=== PATIENT | male | born 1985 | race Asian ===

== ENCOUNTER 2022-05-31 16:05 | Emergency (ER) | payer OTHER, SELFPAY ==
[2022-05-31 16:13] VITALS: BP 161/101; PULSE 95; RESP 22; TEMP 37.3; O2SAT 99; BMI 44.9
--- NOTE | 2022-05-31 16:18 | DI.RAD.S_ITS ---
PROCEDURE: XR CHEST 1V INDICATIONS: chest pain TECHNIQUE: One view of the chest was acquired. COMPARISON: None. FINDINGS: Surgical changes and devices: None. Lungs and pleura: Lungs are clear. No pleural effusions or pneumothorax. Mediastinum: Mediastinal contours appear normal. Heart size is mildly enlarged. Bones and chest wall: No suspicious bony lesions. Overlying soft tissues appear unremarkable. IMPRESSION: Mild cardiomegaly. No acute pulmonary findings. Dictated by: Eliza Gómez M.D. on 05/31/2022 at 16:56 Approved by: Eliza Gómez M.D. on 05/31/2022 at 16:57
[2022-05-31 17:27] LABS: COVID19 -Nasal RAPID Negative (Negative)
[2022-05-31 17:39] LABS: Alanine Aminotransferase 58 IU/L (<50); Albumin 4.6 g/dL (3.5-5.0); Albumin Globulin Ratio 1.2 (1.0-2.8); Alkaline Phosphatase 76 U/L (38-126); Aspartate Aminotransferase 38 IU/L (17-59); BUN Creatinine Ratio 15.9 (6-22); Bilirubin Total 0.5 mg/dL (0.2-1.3); Blood Urea Nitrogen 11 mg/dL (9-20); Calcium 9.5 mg/dL (8.4-10.2); Carbon Dioxide 30 mmol/L (22-32); Chloride 100 mmol/L (98-107); Creatine Kinase 207 U/L (55-170); Estimated Glomerular Filt Rate > 60 mL/min (>60); Globulin 3.9 g/dL (1.7-4.1); Glucose 116 mg/dL (70-100); HEMOLYSIS 19 (0-50); Lipase 112 U/L (23-300); Potassium 4.4 mmol/L (3.4-5.1); Sodium 141 mmol/L (137-145); Total Protein 8.5 g/dL (6.3-8.2)
[2022-05-31 17:49] LABS: Add Manual Diff / Slide Review NO; Basophils Absolute Auto 100 /uL (0-100); Basophils Percent Auto 0.8 % (0-2); Eosinophils Absolute Auto 300 /uL (0-450); Eosinophils Percent Auto 2.7 % (2-4); Hematocrit 49.7 % (41-53); Hemoglobin 16.5 g/dL (13.5-17.5); Lymphocytes Absolute Auto 2900 /uL (1100-4500); Mean Corpuscular HGB Conc 33.2 % (30-36); Mean Corpuscular Volume 90.4 fL (80-100); Monocytes Absolute Auto 1200 /uL (0-900); Monocytes Percent Auto 9.6 % (3-14); Neutrophils Absolute Auto 8100 /uL (1500-7000); Neutrophils Percent Auto 63.9 % (50-75); Platelet Count 302 X10^3/uL (150-400); Red Cell Distribution Width 13.5 % (11.6-14.8); White Blood Cell Count 12.7 X10^3/uL (4.5-11.0)
[2022-05-31 17:51] LABS: Troponin I < 0.012 ng/mL (0.01-0.034)
[2022-05-31 17:52] VITALS: BP 113/54; PULSE 80; RESP 16; O2SAT 98
[2022-05-31 17:54] LABS: CKMB % Relative Index 0.9 % (1.5-5.0); Creatine Kinase MB 1.77 ng/mL (<2.37)
--- NOTE | 2022-05-31 18:31 | ED_ITS ---
HPI - Chest Pain General Chief Complaint: Chest Pain Stated Complaint: SOB,CHEST PAIN, ALMOST BLACKED OUT Time Seen by Provider: 05/31/22 17:55 Source: patient Mode of arrival: Family Vehicle Limitations: no limitations History of Present Illness HPI narrative: Patient is a 36-year-old male who is here for evaluation of shortness of breath and chest discomfort and palpitations. He states that symptoms started earlier today when he clot into work. He did feel like his heart was beating fast. He was short of breath. He is currently still having some minor shortness of breath but it has improved. This did happen last night and also a couple days ago. He has been drinking some energy drinks but can not say that it is necessarily associated with this. He is never had anything like this in the past. Related Data Allergies Allergy/AdvReac Type Severity Reaction Status Date / Time No Known Drug Allergies Allergy Verified 05/31/22 16:18 Review of Systems Review of Systems ROS Unobtainable: All systems reviewed & are unremarkable except as noted in HPI and below Patient History Medical History Patient denies medical problems Social History Smoking Status: Current every day smoker Smoking Status: Current every day smoker tobacco type: cigarettes alcohol intake frequency: 0-2 drinks per day Substance Use Type: does not use Exam Initial Vital Signs Initial Vital Signs: Vital Signs Temperature 99.2 F 05/31/22 16:13 Pulse Rate 95 H 05/31/22 16:13 Respiratory Rate 22 05/31/22 16:13 Blood Pressure 161/101 H 05/31/22 16:13 Pulse Oximetry 99 05/31/22 16:13 Oxygen Delivery Method 05/31/22 16:13 Const General: cooperative and comfortable HENMT Head: normal to inspection and normocephalic Resp Effort & Inspection: normal respiratory effort Auscultation: clear to auscultation bilaterally Cardio Rate: regular rate Rhythm: regular rhythm GI Inspection: normal to inspection Palpation: soft and No tender Skin General: no rashes or lesions noted Neuro General: patient alert, patient awake and moves all extremities Extrem General: normal to inspection, capillary refill normal and No edema Psych Appearance: grossly normal and well kempt Course Orders Ordered: ED Orders 05/31/22 16:16 EKG-12 Lead Stat 05/31/22 16:18 XR chest 1V Stat 05/31/22 16:54 COVID19 -Nasal RAPID/Pre-Proc Stat 05/31/22 16:57 Complete Blood Count AUTO DIFF Stat Comprehensive Metabolic Panel Stat Lipase Stat Magnesium Stat Troponin & CK Cardiac Panel Stat 05/31/22 18:[address] [facility] [place] - Pantry Steward/Stewardess Stat Vital Signs Vital signs: Vital Signs - 8 hr 05/31/22 16:13 05/31/22 17:52 Temperature 99.2 F Pulse Rate 95 H 80 Respiratory Rate 22 16 Blood Pressure 161/101 H 113/54 L Pulse Oximetry 99 98 Oxygen Delivery Method Room Air Room Air MDM - Chest Pain Lab Data Attestation: I reviewed the patient's lab results. Result diagrams: 05/31/22 16:57 05/31/22 16:57 Labs: Lab Results 05/31/22 05/31/22 05/31/22 Range/Units 16:54 16:57 16:57 WBC 12.7 H (4.5-11.0) X10^3/uL RBC 5.50 (4.5-5.9) X10^6/uL Hgb 16.5 (13.5-17.5) g/dL Hct 49.7 (41-53) % MCV 90.4 (80-100) fL MCH 30.0 (26-34) PG MCHC 33.2 (30-36) % RDW 13.5 (11.6-14.8) % Plt Count 302 (150-400) X10^3/uL Neut % (Auto) 63.9 (50-75) % Lymph % (Auto) 23.0 L (25-40) % [place] % (Auto) 9.6 (3-14) % Eos % (Auto) 2.7 (2-4) % Baso % (Auto) 0.8 (0-2) % Neut # (Auto) 8100 H (6451-5928) /uL Lymph # (Auto) 2900 (7397-9017) /uL [place] # (Auto) 1200 H (0-900) /uL Eos # (Auto) 300 (0-450) /uL Baso # (Auto) 100 (0-100) /uL Sodium 141 (137-145) mmol/L Potassium 4.4 (3.4-5.1) mmol/L Chloride 100 (98-107) mmol/L Carbon Dioxide 30 (22-32) mmol/L BUN 11 (9-20) mg/dL Creatinine 0.69 (0.66-1.25) mg/dL Estimated GFR > 60 (>60) mL/min BUN/Creatinine Ratio 15.9 (6-22) Glucose 116 H (70-100) mg/dL Calcium 9.5 (8.4-10.2) mg/dL Magnesium 2.0 (1.6-2.3) mg/dL Total Bilirubin 0.5 (0.2-1.3) mg/dL AST 38 (17-59) IU/L ALT 58 H (<50) IU/L Alkaline Phosphatase 76 (38-126) U/L Total Creatine Kinase 207 H (55-170) U/L CK-MB (CK-2) 1.77 (<2.37) ng/mL CK-MB (CK-2) Rel Index 0.9 L (1.5-5.0) % Troponin I < 0.012 (0.01-0.034) ng/mL Total Protein 8.5 H (6.3-8.2) g/dL Albumin 4.6 (3.5-5.0) g/dL Globulin 3.9 (1.7-4.1) g/dL Albumin/Globulin Ratio 1.2 (1.0-2.8) Lipase 112 (23-300) U/L SARS-CoV-2 (PCR) Negative (Negative) Imaging Data Chest x-ray: Radiologist's Impression: [address] [address] XRay Report Signed Patient: Jose G Thakur MR#: [id number] : 1985 Acct:[id number] Age/Sex: 36 / M Date of Service: 05/31/22 Loc: ED Accession Number: [id number] ?? Procedure: XR chest 1V Ordering Provider: Adriana Traore D.O. PROCEDURE:? XR CHEST 1V ? INDICATIONS:? chest pain ? TECHNIQUE:? One view of the chest was acquired.? ? COMPARISON:? None. ? FINDINGS:? ? Surgical changes and devices:? None.? ? Lungs and pleura:? Lungs are clear.? No pleural effusions or pneumothorax.? ? Mediastinum:? Mediastinal contours appear normal.? Heart size is mildly enlarged. ? Bones and chest wall:? No suspicious bony lesions.? Overlying soft tissues appear unremarkable.? ? IMPRESSION:? Mild cardiomegaly.? No acute pulmonary findings. ? ? Dictated by: Eliza Gómez M.D. on 05/31/2022 at 16:56 ? ? Approved by: Eliza Gómez M.D. on 05/31/2022 at 16:57? ECG Data Attestation: I personally reviewed and interpreted this ECG as follows: Interpretation: Sinus rhythm Ventricular rate 91 Normal axis Normal QRS Normal QTC No ST T wave changes/ MDM Narrative Medical decision making narrative: Patient does have leukocytosis however there is no signs of any infection. I suspect that this is a stress reaction given his presentation today. His EKG is unremarkable. Troponins negative. Chest x-ray is negative. Not hypoxic. Not tachypneic. Not tachycardic. Lungs are clear. I did discuss with him that potentially the energy drinks could be adding to his issue in that he ought to cut back/stop these. We also discussed that potentially he is having arrhythmias that we are not catching on his EKG today or on the monitor. Patient does not have a primary doctor. Was seen by social work. He was given information to establish a primary doctor. rigging up worker will contact him at the beginning of next week to help set up this appointment. He was given return precautions. He expressed understanding and agreement. Discharge Plan Departure Patient Disposition: Home Clinical Impression: Palpitations, Shortness of breath Instructions: DI for Shortness of Breath Activity Restrictions/Additional Instructions: Like we discussed your workup here in the emergency department is very reassuring. There is no signs of any pneumonia. There is no indication to do any antibiotics. I do recommend that you may contact with a primary doctor. Social work states they will contact you with the beginning of next week to help you with this. I do recommend that you cut back on the energy drinks. Return to the emergency department for any new or worsening symptoms. Referrals: Miscellaneous,MD Sobeida [Primary Care Provider] -
--- NOTE | 2022-05-31 18:44 | CM.DPC ---
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 Pt has [employer] insurance and no current PCP. SW received consult from , requesting PCP resources for patient. SW reviewed patient's insurance and located three primary care clinics in his home area of [place]. SW printed resources and provided to patient at bedside. Pt also requested call back on Monday 06/04 for assistance with scheduling. Plan: ED SW will reach out to patient on Monday 06/04 to assist with scheduling. JORGE ALBERTO Zapata
--- NOTE | 2022-06-04 15:23 | CM.SWNOTE ---
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 SW is following up on pt request to assist with PCP appointment. SW called pt at [phone] and left pt a voicemail with information on [facility] and [facility], which is closer to pt's home. SW provided contact information for both clinics. SW also provided personal contact information so that pt can call back if he needs further assistance. Plan: SHANNAN now signing off. SW will assist pt further if he reaches out again. JORGE ALBERTO Zapata
== END 2022-05-31 19:04 | disposition home or self-care (01) ==
PROVIDERS: Emergency Medicine; Emergency Provider Emergency Medicine
DX: R00.2 Palpitations (principal); R06.02 Shortness of breath; Z20.822 Contact with and (suspected) exposure to COVID-19
CPT/HCPCS: 36415; 71045; 80053; 82550; 82553; 83690; 83735; 84484; 85025; 87635; 93005; 93010; 99283; 99284; C9803